=== PATIENT | female | born 1950 | race Caucasian/White ===

== ENCOUNTER 2016-07-29 10:48 | Emergency (ER) | payer MEDICAID, OTHER ==
[~2016-07-29] VITALS: Ht 167.6 cm; Wt 100.0 kg
[2016-07-29] MEDS ORDERED: SOD CHLORIDE 0.9% 1,000 ML IV STA (10:53)
[2016-07-29 11:03] VITALS: Ht 167.6 cm; Wt 100.0 kg
[2016-07-29 11:36] LABS: ADD SCAN DIFF NO
[2016-07-29 11:39] LABS: BASOPHILS % 0.5 % (0.0-2.0); EOSINOPHILS # 0.1 10^3/ul (0.0-0.5); EOSINOPHILS % 1.2 % (0.0-7.0); HEMATOCRIT 41.6 % (37.0-47.0); HEMOGLOBIN 13.8 g/dl (12.0-16.0); LYMPHOCYTES # 1.2 10^3/ul (0.8-2.9); LYMPHOCYTES % 28.9 % (15.0-51.0); MEAN CORPUSCULAR HEMOGLOBIN 28.8 pg (29.0-33.0); MEAN CORPUSCULAR HGB CONC 33.2 g/dl (32.0-37.0); MEAN CORPUSCULAR VOLUME 86.8 fl (82.0-101.0); MEAN PLATELET VOLUME 11.1 fl (7.4-10.4); MONOCYTE # 0.3 10^3/ul (0.3-0.9); MONOCYTES % 7.4 % (0.0-11.0); NEUTROPHIL # 2.6 10^3/ul (1.6-7.5); NEUTROPHILS % 61.5 % (39.0-77.0); PLATELET COUNT 139 10^3/UL (140-415); RED BLOOD COUNT 4.79 10^6/ul (4.20-5.40); RED CELL DISTRIBUTION WIDTH 12.3 % (11.5-14.5); WHITE BLOOD COUNT 4.2 10^3/ul (4.8-10.8)
[2016-07-29 11:48] LABS: ALBUMIN 4.2 g/dl (3.3-4.9)
[2016-07-29 11:49] LABS: POTASSIUM 3.9 mmol/L (3.5-5.1)
[2016-07-29 11:51] LABS: ALBUMIN/GLOBULIN RATIO 1.61; BILIRUBIN,INDIRECT 0.4 mg/dl (0-1.1); BILIRUBIN,TOTAL 0.4 mg/dl (0.2-1.3); CREATININE 0.69 mg/dl (0.44-1.00); TOTAL PROTEIN 6.8 g/dl (6.1-8.1)
[2016-07-29 11:52] LABS: CALCIUM 9.1 mg/dl (8.4-10.2); MAGNESIUM 1.8 mg/dl (1.7-2.5)
[2016-07-29] MEDS ORDERED: OMEP10CA4 PO (11:53)
--- NOTE | 2016-07-29 12:08 | ERD ---
ER Documentation Chief Complaint Date/Time DATE: 07/29/16 TIME: 12:06 Chief Complaint CAME IN VIA IN TAKE DUE TO ABDOMINAL PAIN AND DIARRHEA X5 DAYS HPI 65-year-old female with a history of GERD presenting with 1 week of watery diarrhea, about 10 episodes of day, with associated lower abdominal pain. The pain is about a 5 out of 10, constant, nonradiating, aching and sometimes dull. No associated nausea, vomiting, dysuria, fever, chills. No recent travel. ROS All systems reviewed and are negative except as per history of present illness. Medications Home Meds Reported Medications Omeprazole* (Omeprazole*) Unknown Strength Capsule., PO DAILY, #60 CAP 07/29/16 Allergies Allergies: Coded Allergies: Penicillins (Verified Allergy, Unknown, VOMITING, 07/29/16) PMhx/Soc History of Surgery: Yes (HYSTERECTOMY) Anesthesia Reaction: No Hx Miscellaneous Medical Probl: Yes (GERD) Hx Alcohol Use: No Hx Substance Use: No Hx Tobacco Use: No Smoking Status: Never smoker FmHx Family History: diabetes (mother) Physical Exam Vitals Vital Signs Date Time Temp Pulse Resp B/P Pulse Ox O2 Delivery O2 Flow Rate FiO2 07/29/16 11:03 98.5 62 16 136/84 98 Physical Exam Const: Well-appearing, nontoxic, no apparent distress Head: Atraumatic Eyes: Normal Conjunctiva ENT: Normal External Ears, Nose and Mouth. Neck: Full range of motion..~ No meningismus. Resp: Clear to auscultation bilaterally Cardio: Regular rate and rhythm, no murmurs Abd: Soft, minimal suprapubic tenderness, non distended. Normal bowel sounds Skin: No petechiae or rashes Back: No midline or flank tenderness Ext: No cyanosis, or edema Neur: Awake and alert Psych: Normal Mood and Affect Result Diagram: 07/29/16 1115 07/29/16 1115 Results 24 hrs Laboratory Tests Test 07/29/16 11:15 White Blood Count 4.210^3/ul Red Blood Count 4.7910^6/ul Hemoglobin 13.8g/dl Hematocrit 41.6% Mean Corpuscular Volume 86.8fl Mean Corpuscular Hemoglobin 28.8pg Mean Corpuscular Hemoglobin Concent 33.2g/dl Red Cell Distribution Width 12.3% Platelet Count 23860^3/UL Mean Platelet Volume 11.1fl Neutrophils % 61.5% Lymphocytes % 28.9% Monocytes % 7.4% Eosinophils % 1.2% Basophils % 0.5% Nucleated Red Blood Cells % 0.0/100WBC Neutrophils # 2.610^3/ul Lymphocytes # 1.210^3/ul Monocytes # 0.310^3/ul Eosinophils # 0.110^3/ul Basophils # 0.010^3/ul Nucleated Red Blood Cells # 0.010^3/ul Sodium Level 142mmol/L Potassium Level 3.9mmol/L Chloride Level 103mmol/L Carbon Dioxide Level 28mmol/L Anion Gap 15 Blood Urea Nitrogen 11mg/dl Creatinine 0.69mg/dl Glucose Level 102mg/dl Calcium Level 9.1mg/dl Magnesium Level 1.8mg/dl Total Bilirubin 0.4mg/dl Direct Bilirubin 0.00mg/dl Indirect Bilirubin 0.4mg/dl Aspartate Amino Transf (AST/SGOT) 36IU/L Alanine Aminotransferase (ALT/SGPT) 82IU/L Alkaline Phosphatase 79IU/L Total Protein 6.8g/dl Albumin 4.2g/dl Globulin 2.60g/dl Albumin/Globulin Ratio 1.61 Current Medications Medications (Trade) Dose Ordered Sig/Sofia Route PRN Reason Start Time Stop Time Status Last Admin Dose Admin Sodium Chloride (NS) 1,000 ml @ 1,000 mls/hr Q1H STAT IV 07/29/16 10:53 07/29/16 11:52 DC 07/29/16 11:19 Procedures/MDM EMERGENT LABS AND DIAGNOSTIC STUDIES: Lab Results above were reviewed and interpreted by me. CBC and CMP within normal limits Radiology Results as interpreted by Radiology below were reviewed by Nguyen Oliveros MD: CT abdomen and pelvis shows no acute abnormalities Initial Nursing notes reviewed. Previous Medical Records requested via the Electronic Health Record. EMERGENCY DEPARTMENT COURSE / MEDICAL DECISION MAKING: Patient is presenting with 1 week of diarrhea and lower abdominal pain. She is afebrile, well-appearing, with stable vitals. Labs were done to evaluate electrolytes and her leukocytosis and were normal. She has mild nonspecific elevation of her liver enzyme. CT did not show evidence of appendicitis, diverticulitis, colitis. IV fluids were given. Vitals remained stable. I believe the patient is stable for discharge with return precautions. She will follow-up with her primary care doctor within the next 2 days if her symptoms continue. Departure Diagnosis: Primary Impression: Diarrhea Diarrhea type: unspecified type Qualified Code: R19.7 - Diarrhea, unspecified type Additional Impression: Lower abdominal pain CHRISTOPHER OLIVEROS MD Jul 29, 2016 12:08 CHRISTOPHER OLIVEROS MD Jul 29, 2016 12:08
--- NOTE | 2016-07-29 12:30 | RADRPT ---
PROCEDURE: CT Abdomen and Pelvis without contrast. CLINICAL INDICATION: Lower abdominal pain and diarrhea. TECHNIQUE: CT scan of the abdomen and pelvis without contrast was performed on a multidetector hig h-resolution CT scanner. The patient was scanned without intravenous contrast. Coronal and sagittal reformatted images were obtained from the axial source images. Images were reviewed on a high-resol [employer] PACS workstation. The total exam CTDI equals 22.70 mGy and the total exam DLP equals 1339.19 m Gy-cm. One or more of the following dose reduction techniques were used: Automated exposure control. Adjustment of the mA and/or kV according to patient size. Use of iterative reconstruction technique. COMPARISON: None FINDINGS: CT abdomen: The lung bases are clear. The heart size is normal, without pericardial thickening or effusion. The re is hepatomegaly with fatty infiltration. The spleen is normal in size and homogeneous in density . The stomach is partially collapsed, but is grossly unremarkable. The pancreas as visualized is n ormal. The gallbladder and biliary tree are unremarkable and there is no evidence for biliary dilat ation. The adrenal glands are symmetric and normal. The kidneys are symmetrically unremarkable as well. No renal calculus or obstructive uropathy or mass lesion is seen. The aorta is of normal caliber. Aortic vascular calcifications are present. There is no retroperit flores lymphadenopathy. The masood hepatis region is clear. The bowel and mesentery, as visualized, are equally unremarkable. There is fat containing periumbilical hernia. CT pelvis: The small bowel loops situated within the pelvis are unremarkable. There is a normal appendix. The pelvic organs are normal. The pelvic sidewalls and inguinal regions are clear. The sigmoid colon a nd rectum are remarkable for sigmoid diverticulosis. No mass, lymphadenopathy, or free fluid is see n. No acute inflammation is seen. The surrounding osseous structures are remarkable for degenerati ve spondylosis of the spine. No osteolytic or osteoblastic lesion is detected. IMPRESSION: 1. No mass, lymphadenopathy, or focal acute inflammatory process is identified. 2. Normal appendix. 3. Hepatomegaly with fatty infiltration. 4. Fat containing periumbilical hernia. 5. Mild aortic vascular calcifications. RPTAT: BB .Harun Ozer, MD, MD Date Time Electronically viewed and signed by .Aurelia Pearson MD, MD on 07/29/2016 12:30 .O/
[2016-07-29 12:49] VITALS: BP 132/85; PULSE 54; RESP 16; TEMP 98.5
== END 2016-07-29 12:56 | disposition home or self-care (01) ==
LOC: E/R 10:48
DX: R19.7 Diarrhea, unspecified (principal); R10.30 Lower abdominal pain, unspecified
CPT/HCPCS: 36415; 74176; 80053; 83735; 85025; 99285; J7030